=== PATIENT | male | born 1965 | race Caucasian/White ===

== ENCOUNTER 2017-02-03 23:50 | Observation (INO) | payer SELFPAY ==
[~2017-02-03] VITALS: Ht 177.8 cm; Wt 120.0 kg
[2017-02-04] VITALS (15 sets, daily range): BP systolic 120–174; BP diastolic 72–108; PULSE 74–102; RESP 15–20; TEMP 98.1–99.5; O2SAT 93–100
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
--- NOTE | 2017-02-04 01:14 | RADRPT ---
EXAM DATE/TIME: 02/04/2017 01:03 [facility] COMPARISON: No previous studies available for comparison. INDICATIONS : Patient fell and hit head. Cephalgia. RADIATION DOSE: 37.13 CTDIvol (mGy) MEDICAL HISTORY : None SURGICAL HISTORY : None. ENCOUNTER: Initial ACUITY: 1 day PAIN SCALE: 2/10 LOCATION: cranial TECHNIQUE: Multiple contiguous axial images were obtained of the head. Using automated exposure control and adj ustment of the mA and/or kV according to patient size, radiation dose was kept as low as reasonably a chievable to obtain optimal diagnostic quality images. DICOM format image data is available electro nically for review and comparison. FINDINGS: There is subarachnoid hemorrhage involving the posterior sylvian fissure on the left. No parenchymal hematoma is identified. There is no signs of herniation. Posterior fossa structures are unremarkable. Bone windows are unremarkable. There is benign-appearing mucosal disease in the right maxillary sinus . There is a fluid level the left maxillary sinus. CONCLUSION: 1. Subarachnoid hemorrhage in the posterior left sylvian fissure. Aneurysm is not excluded. CT angiog [place] is recommended for further evaluation if clinically indicated. Petros Brink MD on February 04, 2017 at 1:11 Board Certified Radiologist. This report was verified electronically.
[2017-02-04] MEDS ORDERED: IOHEXOL 350 MG/ML 10 ML VIAL (for RAD DIAG) IVCONTRAST ONE (02:20)
[2017-02-04 02:41] LABS: AUTOMATED NEUTROPHIL # 9.6 TH/MM3 (1.8-7.7); BASOPHIL # 0.2 TH/MM3 (0-0.2); BASOPHIL % 1.5 % (0.0-2.0); EOSINOPHIL # 0.1 TH/MM3 (0-0.4); EOSINOPHIL % 0.9 % (0.0-4.0); HEMATOCRIT 47.1 % (39.0-51.0); HEMO FLAGS DIFF FINAL; LYMPH % 19.4 % (9.0-44.0); LYMPHOCYTE # 2.7 TH/MM3 (1.0-4.8); MEAN CELL VOLUME 98.5 FL (80.0-100.0); MEAN CORPUSCULAR HEMOGLOBIN 32.3 PG (27.0-34.0); MEAN CORPUSCULAR HGB CONC 32.8 % (32.0-36.0); MONO % 9.1 % (0.0-8.0); NEUT % 69.1 % (16.0-70.0); PLATELET COUNT 360 TH/MM3 (150-450); RED BLOOD COUNT 4.78 MIL/MM3 (4.50-5.90); RED CELL DISTRIBUTION WIDTH 13.4 % (11.6-17.2); WHITE BLOOD COUNT 13.9 TH/MM3 (4.0-11.0)
[2017-02-04 02:52] LABS: APTT (PATIENT) 26.3 SEC (24.3-30.1); PROTHROMBIN TIME - PATIENT 10.7 SEC (9.8-11.6)
--- NOTE | 2017-02-04 02:58 | RADRPT ---
EXAM DATE/TIME: 02/04/2017 02:11 [facility] COMPARISON: No previous studies available for comparison. INDICATIONS : Evaluate for anuersym. IV CONTRAST: 75 cc Omnipaque 350 (iohexol) IV ; Cumulative dose for multiple exams. RADIATION DOSE: 28.62 CTDIvol (mGy) ; Combined studies MEDICAL HISTORY : None SURGICAL HISTORY : Splenectomy. ENCOUNTER: Initial ACUITY: 1 day PAIN SCALE: 4/10 LOCATION: cranial TECHNIQUE: Volumetric scanning was performed using a multi-row detector CT scanner. The data was post processed with a variety of visualization algorithms including full volume maximum intensity projection, multi -planar sliding thin slab reformation, curved planar reformation, and surface rendering techniques. Using automated exposure control and adjustment of the mA and/or kV according to patient size, radiat ion dose was kept as low as reasonably achievable to obtain optimal diagnostic quality images. DICO M format image data is available electronically for review and comparison. FINDINGS: There is excellent visualization of the major intracranial arteries out to the second-order branch ve ssels. There is no evidence for aneurysm, vessel truncation or stenosis, and no evidence for vascula r malformation. There are patent posterior communicating arteries bilaterally. CONCLUSION: 1. Unremarkable CT angiography of the brain. Petros Brink MD on February 04, 2017 at 2:55 Board Certified Radiologist. This report was verified electronically.
--- NOTE | 2017-02-04 03:00 | RADRPT ---
EXAM DATE/TIME: 02/04/2017 02:11 [facility] COMPARISON: No previous studies available for comparison. INDICATIONS : Evaluate for aneursym. IV CONTRAST: 75 cc Omnipaque 350 (iohexol) IV ; Cumulative dose for multiple exams. RADIATION DOSE: 28.62 CTDIvol (mGy) MEDICAL HISTORY : None SURGICAL HISTORY : Splenectomy. ENCOUNTER: Initial ACUITY: 1 day PAIN SCALE: 4/10 LOCATION: proximal Elevated flow velocities and ICA/CCA ratios have been found to correlate with increased degrees of vessel stenosis, calculated as percentage of diameter relative to a normal segment of distal ICA/CCA. TECHNIQUE: Volumetric scanning was performed using a multirow detector CT scanner. The data was post processed with a variety of visualization algorithms including full-volume maximum intensity projection, multip lanar sliding thin-slab reformation, curved-planar reformation, and surface-rendering techniques. Us ing automated exposure control and adjustment of the mA and/or kV according to patient size, radiatio n dose was kept as low as reasonably achievable to obtain optimal diagnostic quality images. DICOM f ormat image data is available electronically for review and comparison. FINDINGS: AORTIC ARCH: There is a three-vessel origin of the great vessels from the aorta. No evidence of ostial narrowing. RIGHT CAROTID: The common carotid artery is intact. The carotid bulb has a normal configuration without ulceration o r narrowing. The internal carotid artery lumen is smooth without stenosis. The external carotid shaila ry is intact. LEFT CAROTID: The common carotid artery is intact. The carotid bulb has a normal configuration without ulceration or narrowing. The internal carotid artery lumen is smooth without stenosis. The external carotid ar jenny is intact. VERTEBRALS: The right vertebral artery is dominant. There is direct origin of the left vertebral artery from the arch which can be seen as a normal variation. CONCLUSION: Negative CT angiography of the carotid arteries Petros Brink MD on February 04, 2017 at 2:57 Board Certified Radiologist. This report was verified electronically.
[2017-02-04 03:15] LABS: BLOOD UREA NITROGEN 17 MG/DL (7-18)
[2017-02-04 03:26] LABS: ANION GAP 8 MEQ/L (5-15); BICARBONATE 28.2 MEQ/L (21.0-32.0); CHLORIDE 105 MEQ/L (98-107); GLOMERULAR FILTRATION RATE 78 ML/MIN (>89); POTASSIUM 3.9 MEQ/L (3.5-5.1); SODIUM (NA) 141 MEQ/L (136-145)
[2017-02-04 03:33] LABS: ALCOHOL LESS THAN 3 MG/DL (0-5)
[2017-02-04] MEDS ORDERED: traMADol HCL 50 MG TAB PO ONE (03:45)
[2017-02-04] MEDS ORDERED: ACETAMINOPHEN 500 MG CPLT PO ONE (04:00)
[2017-02-04] MEDS ORDERED: LACTULOSE SYRUP 20 GM/30 ML CUP PO PRN (04:15)
[2017-02-04] MEDS ORDERED: MAGNESIUM HYDROXIDE SUSP 30 ML CUP PO PRN (04:15)
[2017-02-04] MEDS ORDERED: SENNOSIDES 8.6 MG TAB PO PRN (04:15)
[2017-02-04] MEDS ORDERED: SODIUM CHLORIDE 0.9% FLUSH 10 ML FLUSH IV FLUSH PRN ×2 (04:15)
[2017-02-04] MEDS ORDERED: NALOXONE HCL 0.4 MG/ML AMP IV PUSH PRN ×2 (04:15)
[2017-02-04] MEDS ORDERED: BISACODYL 10 MG SUPP RECTAL PRN (04:15)
[2017-02-04] MEDS: SODIUM CHLORIDE 0.9% FLUSH 10 ML FLUSH IV FLUSH SCH ×2 (07:59→20:47)
[2017-02-04] MEDS ORDERED: CALCIUM CARBONATE 500 MG CHEWABLE TAB CHEW PRN (08:00)
[2017-02-04] MEDS ORDERED: ONDANSETRON HCL 4 MG/2 ML VIAL IV PUSH PRN (08:00)
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
--- NOTE | 2017-02-04 08:52 | PD.CONS ---
HPI Consult Requested By Primary Care Physician No Primary Care Physician Past Family Social History Allergies: Coded Allergies: No Known Allergies (Verified Allergy, Unknown, 02/04/17) Physical Exam Vital Signs Vital Signs Date Time Temp Pulse Resp B/P (MAP) Pulse Ox O2 Delivery O2 Flow Rate FiO2 02/04/17 06:30 84 16 124/81 (95) 93 Room Air 02/04/17 06:00 80 15 122/74 (90) 94 Room Air 02/04/17 05:00 88 16 120/72 (88) 94 Room Air 02/04/17 02:00 98 18 133/82 (99) 94 Room Air 02/04/17 01:00 96 20 130/78 (95) 94 Room Air 02/04/17 00:05 Room Air 02/04/17 00:01 98.6 102 16 136/83 (100) 96 Laboratory Laboratory Tests Test 02/04/17 02:00 White Blood Count 13.9 Red Blood Count 4.78 Hemoglobin 15.5 Hematocrit 47.1 Mean Corpuscular Volume 98.5 Mean Corpuscular Hemoglobin 32.3 Mean Corpuscular Hemoglobin Concent 32.8 Red Cell Distribution Width 13.4 Platelet Count 360 Mean Platelet Volume 8.3 Neutrophils (%) (Auto) 69.1 Lymphocytes (%) (Auto) 19.4 Monocytes (%) (Auto) 9.1 Eosinophils (%) (Auto) 0.9 Basophils (%) (Auto) 1.5 Neutrophils # (Auto) 9.6 Lymphocytes # (Auto) 2.7 Monocytes # (Auto) 1.3 Eosinophils # (Auto) 0.1 Basophils # (Auto) 0.2 CBC Comment DIFF FINAL Differential Comment Prothrombin Time 10.7 Prothromb Time International Ratio 1.0 Activated Partial Thromboplast Time 26.3 Blood Urea Nitrogen 17 Creatinine 1.01 Random Glucose 121 Calcium Level 8.8 Sodium Level 141 Potassium Level 3.9 Chloride Level 105 Carbon Dioxide Level 28.2 Anion Gap 8 Estimat Glomerular Filtration Rate 78 Ethyl Alcohol Level LESS THAN 3 Result Diagram: 02/04/1719902/04/17199 Gigi Wisdom MD Feb 04, 2017 08:52
[2017-02-04] MEDS ORDERED: SODIUM CHLORIDE 0.9% FLUSH 10 ML FLUSH IV FLUSH SCH (09:00)
[2017-02-04] MEDS: DOCUSATE SODIUM 50 MG/SENNA 8.6 MG TAB PO SCH ×2 (09:00→21:00)
[2017-02-04] MEDS: NS + KCL 20 MEQ INJ 1,000 ML IV SCH ×2 (09:33→22:38)
[2017-02-04] MEDS: ACETAMINOPHEN 325 MG TAB PO PRN ×3 (09:59→23:58)
--- NOTE | 2017-02-04 11:47 | HHI.HP ---
[facility] Primary [facility] Physician No Primary Care Physician Admission Diagnosis SMALL SUBARACHNOID HEMORRHAGE WITHOUT ANEURYSM Diagnoses: Chief Complaint: Syncope Travel History International Travel<30 Days: No Contact w/Intl Traveler <30 Da: No Traveled to Known Affected Are: No History of Present Illness This is a 51-year-old male with no significant past medical history. Patient doesn't recall entire events states he was drunk. He remembers being in a bar and the next thing he knew he woke up with EMS attending to him. It was reported that he fell asleep and fell backwards. Trauma workup shows subarachnoid hemorrhage in the left sylvian fissure with no aneurysm on CTA. At this time, patient is alert and oriented. Denies headache, dizziness, visual changes, neck pain, numbness, focal weakness and nausea. He was able to ambulate in the hallway. All other systems reviewed negative Review of Systems Except as stated in HPI: all other systems reviewed are Neg Past Family Social History Past Medical History As previously mentioned Past Surgical History Splenectomy and tonsillectomy Reported Medications None Allergies: Coded Allergies: No Known Allergies (Verified Allergy, Unknown, 02/04/17) Family History Denies bleeding tendencies, aneurysm Social History Occasional alcohol use but had too much to drink last night, does not smoke. Denies IVDU Physical Exam Vital Signs Vital Signs Date Time Temp Pulse Resp B/P (MAP) Pulse Ox O2 Delivery O2 Flow Rate FiO2 02/04/17 09:48 96 Nasal Cannula 02/04/17 09:30 98.7 87 16 133/74 (93) 95 Nasal Cannula 02/04/17 08:30 74 18 (95) 94 Room Air 02/04/17 07:30 80 16 (95) 94 Room Air 02/04/17 06:30 84 16 124/81 (95) 93 Room Air 02/04/17 06:00 80 15 122/74 (90) 94 Room Air 02/04/17 05:00 88 16 120/72 (88) 94 Room Air 02/04/17 02:00 98 18 133/82 (99) 94 Room Air 02/04/17 01:00 96 20 130/78 (95) 94 Room Air 02/04/17 00:05 Room Air 02/04/17 00:01 98.6 102 16 136/83 (100) 96 Physical Exam GENERAL: This is a well-nourished, well-developed patient, in no apparent distress. SKIN: No rashes, ecchymoses or lesions. Cool and dry. HEAD: Normocephalic. Right parietal scalp tenderness. EYES: Pupils equal round and reactive. Extraocular motions intact. No scleral icterus. No injection or drainage. ENT: Nose without bleeding, purulent drainage or septal hematoma. Throat without erythema, tonsillar hypertrophy or exudate. Uvula midline. Airway patent. NECK: Trachea midline. No JVD or lymphadenopathy. Supple, nontender, no meningeal signs. CARDIOVASCULAR: Regular rate and rhythm without murmurs, gallops, or rubs. RESPIRATORY: Clear to auscultation. Breath sounds equal bilaterally. No wheezes , rales, or rhonchi. GASTROINTESTINAL: Abdomen soft, non-tender, nondistended. No guarding. MUSCULOSKELETAL: Extremities without clubbing, cyanosis, or edema. No joint tenderness, effusion, or edema noted. No calf tenderness. Negative Homans sign bilaterally. NEUROLOGICAL: Awake and alert. Cranial nerves II through XII intact. Motor and sensory grossly within normal limits. Five out of 5 muscle strength in all muscle groups. Normal speech. Laboratory Laboratory Tests Test 02/04/17 02:00 White Blood Count 13.9 Red Blood Count 4.78 Hemoglobin 15.5 Hematocrit 47.1 Mean Corpuscular Volume 98.5 Mean Corpuscular Hemoglobin 32.3 Mean Corpuscular Hemoglobin Concent 32.8 Red Cell Distribution Width 13.4 Platelet Count 360 Mean Platelet Volume 8.3 Neutrophils (%) (Auto) 69.1 Lymphocytes (%) (Auto) 19.4 Monocytes (%) (Auto) 9.1 Eosinophils (%) (Auto) 0.9 Basophils (%) (Auto) 1.5 Neutrophils # (Auto) 9.6 Lymphocytes # (Auto) 2.7 Monocytes # (Auto) 1.3 Eosinophils # (Auto) 0.1 Basophils # (Auto) 0.2 CBC Comment DIFF FINAL Differential Comment Prothrombin Time 10.7 Prothromb Time International Ratio 1.0 Activated Partial Thromboplast Time 26.3 Blood Urea Nitrogen 17 Creatinine 1.01 Random Glucose 121 Calcium Level 8.8 Sodium Level 141 Potassium Level 3.9 Chloride Level 105 Carbon Dioxide Level 28.2 Anion Gap 8 Estimat Glomerular Filtration Rate 78 Ethyl Alcohol Level LESS THAN 3 Result Diagram: 02/04/1719902/04/17 020 Imaging Last Impressions Head CT 02/04/17 0013 Signed Impressions: Service Date/Time: Saturday, February 04, 2017 01:03 - CONCLUSION: 1. Subarachnoid hemorrhage in the posterior left sylvian fissure. Aneurysm is not excluded. CT angiography is recommended for further evaluation if clinically indicated. Petros Brink MD Neck CTA 02/04/17 0000 Signed Impressions: Service Date/Time: Saturday, February 04, 2017 02:11 - CONCLUSION: Negative CT angiography of the carotid arteries Petros Brink MD Head CTA 02/04/17 0000 Signed Impressions: Service Date/Time: Saturday, February 04, 2017 02:11 - CONCLUSION: 1. Unremarkable CT angiography of the brain. Petros Brink MD Caprini VTE Risk Assessment Caprini VTE Risk Assessment: No/Low Risk (score <= 1) Caprini Risk Assessment Model Point Value = 1 Point Value = 2 Point Value = 3 Point Value = 5 Age 41-60 Minor surgery BMI > 25 kg/m2 Swollen legs Varicose veins or History of unexplained or recurrent spontaneous Oral contraceptives or hormone replacement Sepsis (< 1 month) Serious lung disease, including pneumonia (< 1 month) Abnormal pulmonary function Acute myocardial infarction Congestive heart failure (< 1 month) History of inflammatory bowel disease Medical patient at bed rest Age 61-74 Arthroscopic surgery Major open surgery (> 45 min) Laparoscopic surgery (> 45 min) Malignancy Confined to bed (> 72 hours) Immobilizing plaster cast Central venous access Age >= 75 History of VTE Family history of VTE Factor V Leiden Prothrombin [id number] Lupus anticoagulant Anticardiolipin antibodies Elevated serum homocysteine Heparin-induced thrombocytopenia Other congenital or acquired thrombophilia Stroke (< 1 month) Elective arthroplasty Hip, pelvis, or leg fracture Acute spinal cord injury (< 1 month) Prophylaxis Regimen Total Risk Factor Score Risk Level Prophylaxis Regimen 0-1 Low Early ambulation 2 Moderate Order ONE of the following: *Sequential Compression Device (SCD) *Heparin 5000 units SQ BID 3-4 Higher Order ONE of the following medications: *Heparin 5000 units SQ TID *Enoxaparin/Lovenox 40 mg SQ daily (WT < 150 kg, CrCl > 30 mL/min) *Enoxaparin/Lovenox 30 mg SQ daily (WT < 150 kg, CrCl > 10-29 mL/min) *Enoxaparin/Lovenox 30 mg SQ BID (WT < 150 kg, CrCl > 30 mL/min) AND/OR *Sequential Compression Device (SCD) 5 or more Highest Order ONE of the following medications: *Heparin 5000 units SQ TID (Preferred with Epidurals) *Enoxaparin/Lovenox 40 mg SQ daily (WT < 150 kg, CrCl > 30 mL/min) *Enoxaparin/Lovenox 30 mg SQ daily (WT < 150 kg, CrCl > 10-29 mL/min) *Enoxaparin/Lovenox 30 mg SQ BID (WT < 150 kg, CrCl > 30 mL/min) AND *Sequential Compression Device (SCD) Assessment and Plan Problem List: (1) Subarachnoid bleed ICD Code: I60.9 - Nontraumatic subarachnoid hemorrhage, unspecified Status: Acute (2) Scalp contusion ICD Code: S00.03XA - Contusion of scalp, initial encounter Status: Acute Assessment and Plan This is a 51-year-old male who presented to the emergency department with syncope. It was reported that he fell asleep and fell backwards. Trauma workup shows subarachnoid hemorrhage in the left sylvian fissure with no aneurysm on CTA. Subarachnoid hemorrhage status post fall. CTA didn't reveal aneurysm. Patient will be hospitalized for further evaluation and treatment. Neuro checks, seizure precautions. Follow-up consultation with neurosurgery Syncope secondary to alcohol intoxication. Currently nonfocal Leukocytosis likely reactive. Repeat CBC in the morning Hyperglycemia. Obtain fasting glucose in the morning DVT prophylaxis with SCD. Avoid pharmacological prophylaxis secondary to subarachnoid hemorrhage Discussed Condition With pt Problem Qualifiers (1) Scalp contusion: Qualified Codes: S00.03XA - Contusion of scalp, initial encounter Thomas Nunn MD Feb 04, 2017 11:47
--- NOTE | 2017-02-04 15:21 | MB ---
cc: OMAR CABRAL M.D. DATE OF CONSULTATION: 02/04/2017 DATE OF : 1965 REASON FOR CONSULTATION Syncope. HISTORY OF PRESENT ILLNESS This is a 51-year-old man with no significant past medical history, states that he was at a bar having some rum, about 4 or 5 drinks, was feeling just a little bit inebriated but not too bad. He remembers the next thing getting up and fell, and apparently woke up in the bar with people attending to him. He came into the hospital as a Trauma Alert showing a small arachnoid in the posterior left sylvian fissure. He was seen by neurosurgery. CTA of the [place] and carotids were unremarkable. He denies any pain, headache, weakness, numbness, tingling. Denied biting his tongue or losing any urine. Denied ever having this happen before. He is asking to go home. He has been ambulating in the hallway. PAST MEDICAL HISTORY Unremarkable. PAST SURGICAL HISTORY 1. Splenectomy. 2. Tonsillectomy. MEDICATIONS Home meds are none. ALLERGIES None reported. FAMILY HISTORY Noncontributory. SOCIAL HISTORY Alcohol, could be daily but he does not elaborate. He does not smoke. Denies IV drug use. PHYSICAL EXAMINATION VITAL SIGNS: Temperature 98.7, pulse 96, respiratory rate 18, blood pressure 133/74. Satting 100% on 2 liters. NEUROLOGIC: He is awake and alert. He is oriented. He is fluent. Pupils reactive. Visual renee full. Face symmetrical. Tongue midline. Motor: No drift or leg lag. Cerebellar is normal. DTRs are trace to 1+. Toes withdraws. NECK: Supple. No bruits. HEART: Regular. IMAGING As described. LABORATORY Labs are reviewed. White count 13.9 on admission. GFR 78. Glucose 121. Alcohol level was less than 3. Coag panel was normal. IMPRESSION 1. Fall from intoxication that contributed to the head trauma and the subarachnoid hemorrhage versus syncope. At this time he does not really know what happened. 2. Ethanol use, possibly daily. RECOMMENDATIONS Recommendations are to get an EEG. He does not look like he is withdrawing from alcohol but I would consider some low-dose Librium, thiamine and folic acid. If his EEG is unremarkable will have him undergo an outpatient Holter monitor and follow-up with his primary care doctor. No aspirin products. Continue current recommendations. MD TONYA Spear /3:06 PM /3:17 PM
[2017-02-04] MEDS ORDERED: LORazepam 1 MG TAB PO PRN (15:45)
--- NOTE | 2017-02-04 15:59 | MG ---
cc: LIU ROOT M.D. Lab No: Date: 02/04/2017 Age: Sex: M Race: TEST NUMBER [id number] TECHNIQUE 17 channel EEG. DESCRIPTION The background rhythm reveals symmetrical alpha rhythm. Frequency is 8-10 Hz. Amplitude 20-30 microvolts. The patient does appear to fall asleep. There is slowing in the theta range. Sleep spindles are present as well as vertex sharp waves. This is normal sleep activity. There are no epileptiform discharges. No lateralizing features. Hyperventilation was not done. Photic results in a normal driving response. INTERPRETATION Normal EEG. MD ISRAEL Quinteros/ÓSCAR /3:49 PM /4:00 PM
[2017-02-05 04:05] VITALS: BP 151/82; PULSE 73; RESP 18; TEMP 98.1; O2SAT 95
[2017-02-05] MEDS: ACETAMINOPHEN 325 MG TAB PO PRN (06:38)
[2017-02-05 07:51] VITALS: BP 145/98; PULSE 74; RESP 24; TEMP 98.5; O2SAT 96
[2017-02-05 08:00] VITALS: PULSE 83
[2017-02-05] MEDS ORDERED: THIAMINE HCL 100 MG TAB PO SCH (09:00)
[2017-02-05] MEDS ORDERED: FOLIC ACID 1 MG TAB PO SCH (09:00)
[2017-02-05] MEDS ORDERED: MULTIVITAMINS/MINERALS THERAPEUTIC TAB PO SCH (09:00)
[2017-02-05] MEDS: SODIUM CHLORIDE 0.9% FLUSH 10 ML FLUSH IV FLUSH SCH (09:00)
[2017-02-05] MEDS ORDERED: cloNIDine HCL 0.1 MG TAB PO PRN (09:15)
[2017-02-05 09:30] LABS: AUTOMATED NEUTROPHIL # 8.3 TH/MM3 (1.8-7.7); BASOPHIL # 0.1 TH/MM3 (0-0.2); BASOPHIL % 0.6 % (0.0-2.0); EOSINOPHIL # 0.4 TH/MM3 (0-0.4); EOSINOPHIL % 3.5 % (0.0-4.0); HEMATOCRIT 45.1 % (39.0-51.0); HEMO FLAGS DIFF FINAL; LYMPH % 22.1 % (9.0-44.0); LYMPHOCYTE # 2.8 TH/MM3 (1.0-4.8); MEAN CELL VOLUME 99.7 FL (80.0-100.0); MEAN CORPUSCULAR HEMOGLOBIN 33.3 PG (27.0-34.0); MEAN CORPUSCULAR HGB CONC 33.4 % (32.0-36.0); MONO % 9.3 % (0.0-8.0); NEUT % 64.5 % (16.0-70.0); PLATELET COUNT 331 TH/MM3 (150-450); RED BLOOD COUNT 4.53 MIL/MM3 (4.50-5.90); RED CELL DISTRIBUTION WIDTH 13.7 % (11.6-17.2); WHITE BLOOD COUNT 12.8 TH/MM3 (4.0-11.0)
[2017-02-05 09:58] LABS: BICARBONATE 24.7 MEQ/L (21.0-32.0); MAGNESIUM 2.3 MG/DL (1.5-2.5); POTASSIUM 3.6 MEQ/L (3.5-5.1)
[2017-02-05] MEDS: NS + KCL 20 MEQ INJ 1,000 ML IV SCH (11:15)
[2017-02-05] MEDS: DOCUSATE SODIUM 50 MG/SENNA 8.6 MG TAB PO SCH (11:16)
[2017-02-05] MEDS ORDERED: THIA100 PO (11:21)
[2017-02-05] MEDS ORDERED: THERM PO (11:21)
[2017-02-05] MEDS ORDERED: FOLI1TAB6 PO (11:21)
--- NOTE | 2017-02-05 11:22 | HHI.DCPOC ---
Discharge Care Plan Diagnosis: (1) Alcohol abuse (2) Subarachnoid bleed (3) Scalp contusion Goals to Promote Your Health * To prevent worsening of your condition and complications * To maintain your health at the optimal level Directions to Meet Your Goals Please abstain from all alcohol consumption Do not take any aspirin products Take your medications as prescribed Follow your dietary instruction Follow activity as directed Keep your appointments as scheduled Take your immunizations and boosters as scheduled If your symptoms worsen call your PCP, if no PCP go to Urgent Care Center or Emergency Room Smoking is Dangerous to Your Health. Avoid second hand smoke Call the 24-hour hour crisis hotline for domestic abuse at Alyson Padilla Feb 05, 2017 11:22
--- NOTE | 2017-02-05 11:24 | HHI.PR ---
Subjective Remarks Follow-up close head injury. Remains asymptomatic. Ambulating. Discussed with RN Objective Vitals Vital Signs Date Time Temp Pulse Resp B/P (MAP) Pulse Ox O2 Delivery O2 Flow Rate FiO2 02/05/17 07:51 98.5 74 24 145/98 (114) 96 02/05/17 04:05 98.1 73 18 151/82 (105) 95 02/04/17 23:58 98.1 85 19 174/108 (130) 94 02/04/17 23:12 91 02/04/17 20:03 99.5 89 19 143/89 (107) 96 02/04/17 17:00 94 02/04/17 14:00 96 18 (93) 100 Nasal Cannula 2.00 02/04/17 12:00 85 18 97 Room Air Result Diagram: 02/05/17 0755 02/05/17 0755 Imaging Last Impressions Head CT 02/04/17 0013 Signed Impressions: Service Date/Time: Saturday, February 04, 2017 01:03 - CONCLUSION: 1. Subarachnoid hemorrhage in the posterior left sylvian fissure. Aneurysm is not excluded. CT angiography is recommended for further evaluation if clinically indicated. Petros Brink MD Neck CTA 02/04/17 0000 Signed Impressions: Service Date/Time: Saturday, February 04, 2017 02:11 - CONCLUSION: Negative CT angiography of the carotid arteries Petros Brink MD Head CTA 02/04/17 0000 Signed Impressions: Service Date/Time: Saturday, February 04, 2017 02:11 - CONCLUSION: 1. Unremarkable CT angiography of the brain. Petros Brink MD Objective Remarks GENERAL: This is a well-nourished, well-developed patient, in no apparent distress. SKIN: No rashes, ecchymoses or lesions. Cool and dry. HEAD: Normocephalic. Right parietal scalp tenderness. EYES: Pupils equal round and reactive. Extraocular motions intact. No scleral icterus. No injection or drainage. ENT: Nose without bleeding, purulent drainage or septal hematoma. Throat without erythema, tonsillar hypertrophy or exudate. Uvula midline. Airway patent. NECK: Trachea midline. No JVD or lymphadenopathy. Supple, nontender, no meningeal signs. CARDIOVASCULAR: Regular rate and rhythm without murmurs, gallops, or rubs. RESPIRATORY: Clear to auscultation. Breath sounds equal bilaterally. No wheezes , rales, or rhonchi. GASTROINTESTINAL: Abdomen soft, non-tender, nondistended. No guarding. MUSCULOSKELETAL: Extremities without clubbing, cyanosis, or edema. No joint tenderness, effusion, or edema noted. No calf tenderness. Negative Homans sign bilaterally. NEUROLOGICAL: Awake and alert. Cranial nerves II through XII intact. Motor and sensory grossly within normal limits. Five out of 5 muscle strength in all muscle groups. Normal speech. A/P Problem List: (1) Subarachnoid bleed ICD Code: I60.9 - Nontraumatic subarachnoid hemorrhage, unspecified Status: Acute (2) Scalp contusion ICD Code: S00.03XA - Contusion of scalp, initial encounter Status: Acute Assessment and Plan This is a 51-year-old male who presented to the emergency department with syncope. It was reported that he fell asleep and fell backwards. Trauma workup shows subarachnoid hemorrhage in the left sylvian fissure with no aneurysm on CTA. Subarachnoid hemorrhage status post fall. CTA didn't reveal aneurysm. Patient will be hospitalized for further evaluation and treatment. Neuro checks, seizure precautions. Neurosurgery recommends nonsurgical management. Follow- up repeat head CT today without acute findings Syncope secondary to alcohol intoxication. EEG unremarkable. Currently nonfocal. Follow-up Holter monitor. [facility] protocol. Counseled regarding alcohol Leukocytosis likely reactive. Improving Hyperglycemia. Persistent obtain A1c DVT prophylaxis with SCD. Avoid pharmacological prophylaxis secondary to subarachnoid hemorrhage Discharge Planning Discharge patient to home Condition on discharge: Improved Regular Diet as tolerated Ad Jane activity no driving Rx written: Multivitamins, thiamine and folic acid Follow-up with primary care physician, neurology and neurosurgery Problem Qualifiers (1) Scalp contusion: Qualified Codes: S00.03XA - Contusion of scalp, initial encounter Thomas Nunn MD Feb 05, 2017 11:24
[2017-02-05 11:35] VITALS: BP 137/98; PULSE 83; RESP 24; TEMP 98.3; O2SAT 93
--- NOTE | 2017-02-05 11:37 | RADRPT ---
EXAM DATE/TIME: 02/05/2017 11:26 [place] COMPARISON: CT BRAIN W/O CONTRAST, February 04, 2017, 1:03. INDICATIONS : Evaluate bleed RADIATION DOSE: 35.66 CTDIvol (mGy) MEDICAL HISTORY : None SURGICAL HISTORY : None. ENCOUNTER: Subsequent ACUITY: 1 day PAIN SCALE: 3/10 LOCATION: cranial TECHNIQUE: Multiple contiguous axial images were obtained of the head. Using automated exposure control and adj ustment of the mA and/or kV according to patient size, radiation dose was kept as low as reasonably a chievable to obtain optimal diagnostic quality images. DICOM format image data is available electro nically for review and comparison. FINDINGS: Minimal left frontal contusion is evolving without new suspicious findings identified. There is no si gnificant mass effect. Nothing to suggest acute infarction. Sinus disease again noted. CONCLUSION: Evolving small left frontal contusion. Jorje Cazares MD on February 05, 2017 at 11:35 Board Certified Radiologist. This report was verified electronically.
[2017-02-05 16:14] VITALS: BP 142/102; PULSE 82; RESP 24; TEMP 98.3; O2SAT 95
[2017-02-05 18:21] LABS: HEMOGLOBIN A1a 1.2 %; HEMOGLOBIN A1b 1.1 %; HEMOGLOBIN LA1C 2.7 %; HEMOGLOBIN P3 4.1 %
== END 2017-02-05 18:21 | disposition home or self-care (01) ==
LOC: NEPC 23:50 → NEDA 02-04 04:34 → NEPHCDU 02-04 14:47
PROVIDERS: ADMIT Internal Medicine; ATTEND Internal Medicine
DX: S06.6X9A Traumatic subarachnoid hemorrhage with loss of consciousness of unspecified duration, initial encounter (principal); S00.03XA Contusion of scalp, initial encounter; F10.129 Alcohol abuse with intoxication, unspecified; R55 Syncope and collapse; D72.829 Elevated white blood cell count, unspecified; E11.65 Type 2 diabetes mellitus with hyperglycemia; W19.XXXA Unspecified fall, initial encounter
CPT/HCPCS: 70450; 70496; 70498; 80048; 80307; 83036; 83735; 85025; 85610; 85730; 95819; 96360; 96361; G0378; G8987-GP; G8988-GP; J3480; Q9967